=== PATIENT | female | born 1995 | race Caucasian/White ===

== ENCOUNTER 2019-05-31 12:16 | Observation (INO) ==
[2019-05-31] MEDS ORDERED: Ondansetron 4 MG/2 ML VIAL IVP ONE (12:37)
[2019-05-31] MEDS ORDERED: Ketorolac 30 MG/ML VIAL IVP ONE (12:37)
[2019-05-31 12:50] LABS: Basophils # 0.1 K/mcL (0.0-0.2); Basophils % 0.3 %; Eosinophils % 0.1 %; Hematocrit 39.6 % (35.3-44.9); Hemoglobin 13.3 g/dL (11.5-15.4); Immature Granulocytes % 1.1 % (0-4); Lymphocytes # 2.8 K/mcL (0.6-4.6); Mean Corpuscular HGB Conc 33.6 g/dL (31.6-35.5); Mean Corpuscular Hemoglobin 28.7 pg (28.0-33.3); Mean Corpuscular Volume 85.5 fL (83.0-100.0); Mean Platelet Volume 9.8 fL (9.4-12.4); Monocytes # 1.6 K/mcL (0.0-1.3); Neutrophils # 34.8 K/mcL (1.6-8.9); Platelet Count 405 K/mcL (140-400); Red Blood Count 4.63 M/mcL (3.82-4.97); Red Cell Distribution Width 13.7 % (11.5-14.5); Segmented Neutrophils % 87.5 %
[2019-05-31 12:52] LABS: White Blood Count 39.8 K/mcL (4.3-11.1)
[2019-05-31] MEDS: 0.9 % Sodium Chloride 1,000 ML IVC SCH ×8 (12:57→22:11)
[2019-05-31 13:07] LABS: Platelet Estimate Increased (Normal)
[2019-05-31 13:08] LABS: BUN/Creatinine Ratio 7 (6-26); Blood Urea Nitrogen 6 mg/dL (6-20); Carbon Dioxide 22 mEq/L (23-29); Chloride 104 mEq/L (98-107); Glucose 108 mg/dL (70-105); Osmolality,Calculated 278 (280-300); Potassium 3.9 mEq/L (3.5-5.1); Sodium 135 mEq/L (136-145); eGFR For African Americans > 60 (> 60); eGFR For Non-African Americans > 60 (> 60)
[2019-05-31] MEDS ORDERED: Ibuprofen 400 MG TABLET PO PRN (14:18)
[2019-05-31] MEDS ORDERED: Naloxone 0.4 MG/ML INJ IVP PRN (14:18)
[2019-05-31] MEDS ORDERED: *HR* OxyCODONE Immed Rel 5 MG TABLET PO PRN (14:18)
[2019-05-31] MEDS ORDERED: Ondansetron 4 MG/2 ML VIAL IVP PRN (14:18)
[2019-05-31] MEDS: *HR* HYDROcodone/Acet 5/325 mg TABLET PO PRN (22:15)
[2019-06-01] MEDS: *HR* HYDROcodone/Acet 5/325 mg TABLET PO PRN (04:53)
[2019-06-01 06:20] LABS: Basophils # 0.1 K/mcL (0.0-0.2); Basophils % 0.3 %; Eosinophils # 0.3 K/mcL (0.0-0.6); Eosinophils % 1.5 %; Hematocrit 35.5 % (35.3-44.9); Hemoglobin 11.4 g/dL (11.5-15.4); Immature Granulocytes % 0.6 % (0-4); Lymphocytes # 3.3 K/mcL (0.6-4.6); Lymphocytes % 18.7 %; Mean Corpuscular HGB Conc 32.1 g/dL (31.6-35.5); Mean Corpuscular Hemoglobin 28.6 pg (28.0-33.3); Mean Corpuscular Volume 89.2 fL (83.0-100.0); Mean Platelet Volume 10.4 fL (9.4-12.4); Monocytes % 5.6 %; Platelet Count 334 K/mcL (140-400); Red Blood Count 3.98 M/mcL (3.82-4.97); Red Cell Distribution Width 14.2 % (11.5-14.5); Segmented Neutrophils % 73.3 %; White Blood Count 17.7 K/mcL (4.3-11.1)
[2019-06-01 06:47] LABS: BUN/Creatinine Ratio 9 (6-26); Blood Urea Nitrogen 8 mg/dL (6-20); Carbon Dioxide 23 mEq/L (23-29); Chloride 112 mEq/L (98-107); Glucose 114 mg/dL (70-105); Osmolality,Calculated 291 (280-300); Potassium 3.8 mEq/L (3.5-5.1); Sodium 141 mEq/L (136-145); eGFR For African Americans > 60 (> 60); eGFR For Non-African Americans > 60 (> 60)
[2019-06-01 10:35] VITALS: BP 109/65
[2019-06-01] MEDS ORDERED: cefTRIAXone 1,000 MG in Water for inj. (sterile) 10 ML IVPB SCH (13:00)
== END 2019-06-01 12:00 | disposition home or self-care (01) ==
LOC: INPPIK 12:16 → EMEROOPIK 12:16 → INPPIK 14:20
PROVIDERS: ADMIT Family Medicine; ATTEND Family Medicine